=== PATIENT | female | born 1990 | race Caucasian/White ===

== ENCOUNTER 2018-12-31 12:32 | Outpatient (CLI) | payer BC | END 2018-12-31 15:05 | disposition home or self-care (01) | LOC: LDOP 12:32 | PROVIDERS: ATTEND Obstetrics & Gynecology | DX: O26.899 Other specified pregnancy related conditions, unspecified trimester (principal); R10.9 Unspecified abdominal pain; R11.0 Nausea; Z3A.00 Weeks of gestation of pregnancy not specified | CPT/HCPCS: 59025; 81003; 85025; 87086; 96360; 96361; 99201; J7120; J7121; G0463 ==